=== PATIENT | female | born 1990 | race Asian ===

== ENCOUNTER 2019-07-05 14:10 | Outpatient (CLI) | payer MEDICAID ==
[~2019-07-05] VITALS: Ht 147.3 cm; Wt 38.6 kg
[2019-07-05 15:18] VITALS: BP 102/63
[2019-07-05] MEDS ORDERED: LORATADINE10 M1 PO (15:18)
[2019-07-05] MEDS ORDERED: TRAZODONE HCL50 MG ORAL (15:18)
[2019-07-05] MEDS ORDERED: ACETAMINOPHEN325 M1 ORAL (15:18)
[2019-07-05] MEDS ORDERED: DOCUSATE SODIU100 MG ORAL (15:18)
--- NOTE | 2019-07-06 00:30 | Consultation ---
DATE OF CONSULTATION: 07/05/2019 CONSULTING PHYSICIAN: Giuseppe Hawk MD. CHIEF COMPLAINT: Rectal bleeding, constipation. HISTORY OF PRESENT ILLNESS: This is a 28-year-old female with past medical history of hemorrhoids, who presented to the hospital with complaint of rectal bleeding. PAST MEDICAL HISTORY: 1. Hemorrhoids. 2. Back pain. 3. Constipation. PAST SURGICAL HISTORY: None. MEDICATIONS: Trazodone for the bedtime, loratadine, Tylenol, docusate. FAMILY HISTORY: Noncontributory. SOCIAL HISTORY: The patient denies any tobacco, alcohol, or IV drug abuse. ALLERGIES: No known drug allergies. REVIEW OF SYSTEMS: Positive for constipation and rectal bleeding. PHYSICAL EXAMINATION: VITAL SIGNS: Temperature 98.2, blood pressure is 102/63, pulse 82, respirations 20. HEENT: Normocephalic and atraumatic. Sclerae anicteric. NECK: Supple. No evidence of obvious lymphadenopathy. CARDIOVASCULAR: Regular rhythm. Plus S1, S2. LUNGS: Clear to auscultation bilaterally. ABDOMEN: Positive bowel sounds. Soft, nontender. No rebound. No guarding. No peritoneal sign. EXTREMITIES: No cyanosis. No clubbing. No edema. ASSESSMENT AND PLAN: This is a 28-year-old female with rectal bleeding, most likely from hemorrhoids secondary to constipation. The patient was given MiraLAX 17 g nightly plus was given prescription for Anusol-HC suppository to use twice a day p.r.n. when the bleeding comes. She also was instructed to use sitz baths when the bleeding comes. The patient to come back in the office if this above regimen is not working and at that point, we will consider doing flexible sigmoidoscopy. Giuseppe Hawk M.D. DR: Rosy JOB#: [id number] CC:
== END 2019-07-05 16:01 | disposition home or self-care (01) ==
LOC: PAN 14:10
DX: K62.5 Hemorrhage of anus and rectum (principal); K59.00 Constipation, unspecified; Z79.899 Other long term (current) drug therapy
CPT/HCPCS: G0463